=== PATIENT | female | born 1935 | race Hispanic/Latino ===

== ENCOUNTER 2017-12-21 19:14 | Inpatient (IN) | payer MEDICARE, MEDICAID ==
[~2017-12-21] VITALS: Ht 160 cm; Wt 59.9 kg
[~2017-12-21 19:14] MED LIST: AMLODIPINE BESY10 MG ORAL; ASPIRIN EC81 MG ORAL; CARAFATE1 G1 ORAL; CEPHALEXIN250 M1 ORAL; Diovan; GABAPENTIN300 MG ORAL; HYDROCODON-ACE1 EA15 ORAL; NORCO 5-325 TA1 EACH ORAL; OMEPRAZOLE40 M1 ORAL; VALSARTAN-HCTZ1 EAC4 ORAL
[2017-12-21] MEDS ORDERED: LORazepam 1mg tab ORAL ONE (19:30)
[2017-12-21 19:31] VITALS: BP 217/71
[2017-12-21 19:38] LABS: BASOPHILS % (AUTO) 0.8 % (0.0-2.0); EOSINOPHILS % (AUTO) 2.4 % (0.0-3.0); HEMATOCRIT 43.5 % (37.0-47.0); HEMOGLOBIN 14.2 G/DL (12.0-16.0); LYMPHOCYTES % (AUTO) 16.4 % (20.0-45.0); MEAN CORPUSCULAR VOLUME 89 FL (80-99); MONOCYTES % (AUTO) 9.3 % (1.0-10.0); NEUTROPHILS % (AUTO) 71.1 % (45.0-75.0); PLATELET COUNT 369 K/UL (150-450); RED BLOOD COUNT 4.89 M/UL (4.20-5.40); RED CELL DISTRIBUTION WIDTH 11.2 % (11.6-14.8); WHITE BLOOD COUNT 15.8 K/UL (4.8-10.8)
[2017-12-21 19:54] LABS: ANION GAP 10 mmol/L (5-15); BLOOD UREA NITROGEN 14 mg/dL (7-18); CALCIUM 8.7 MG/DL (8.5-10.1); CARBON DIOXIDE 28 MMOL/L (21-32); CHLORIDE 96 MMOL/L (98-107); CREATININE 0.6 MG/DL (0.55-1.30); SODIUM 134 MMOL/L (136-145)
[2017-12-21 20:08] LABS: ALANINE AMINOTRANSFERASE 26 U/L (12-78); ALBUMIN 3.4 G/DL (3.4-5.0); ALBUMIN/GLOBULIN RATIO 0.7 (1.0-2.7); ALKALINE PHOSPHATASE 131 U/L (46-116); ASPARTATE AMINO TRANSFERASE 23 U/L (15-37); BILIRUBIN,TOTAL 0.2 MG/DL (0.2-1.0); CREATINE KINASE 125 U/L (26-308)
[2017-12-21 21:33] VITALS: BP 188/65
[2017-12-21] MEDS ORDERED: Lidocaine 2% Visc 15ml soln ORAL ONE (22:30)
[2017-12-21 22:32] LABS: APPEARANCE,URINE CLEAR; BILIRUBIN, URINE NEGATIVE (NEGATIVE); COLOR,URINE PALE YELLOW; GLUCOSE, URINE (UA) NEGATIVE (NEGATIVE); KETONES,URINE NEGATIVE (NEGATIVE); LEUKOCYTE ESTERASE ,URINE 1+ (NEGATIVE); NITRITE,URINE NEGATIVE (NEGATIVE); PH,URINE 8 (4.5-8.0); PROTEIN,URINE NEGATIVE (NEGATIVE); UROBILINOGEN,URINE NORMAL MG/DL (0.0-1.0)
[2017-12-21 22:56] VITALS: BP 182/62
[2017-12-21] MEDS ORDERED: cefTRIAXone 1 GM in NS 55 ML IVPB ONE (23:30)
--- NOTE | 2017-12-21 23:38 | Emergency Room Report ---
History of Present Illness General Chief Complaint: Generalized Weakness Source: Patient, EMS Present Illness HPI Patient presents with multiple complaints. She fell several days ago and was evaluated. At the hospital they did x-rays and said that nothing was broken and that she was okay. She says it was not a syncopal episode. The injury was her right chest. Currently she feels episodes of flushing with shortness of breath. They're associated also with tingling in her hands and her feet. She took an extra amount of cough syrup recently and this made the symptoms worse. She's also had weakness and dizziness. She denies any chest pain with these episodes. She 's never been treated for anxiety. Patient denies any productive cough at this time. There is nausea with these episodes. There is no diarrhea. She's moving her bowels without difficulty. She denies any dysuria. There are no rashes. She's got a sore throat also. She rates that 8-9/10 in pain. She has pain when she swallows. Patient denies any diabetes or thyroid problems. She does have hypertension and is taking medication for this. Allergies: Coded Allergies: No Known Allergies (Unverified , 11/24/13) Patient History Past Medical History: see triage record Past Surgical History: other - knee and hernia Social History: Denies: smoking, alcohol use, drug use Social History Narrative At home with family Reviewed Nursing Documentation: PMH: Agreed; PSxH: Agreed Nursing Documentation-[facility] Past Medical History: No Stated History Hx Cardiac Problems: Yes Hx Hypertension: Yes Hx Cancer: No Hx Gastrointestinal Problems: Yes Hx Neurological Problems: Yes Hx Peripheral Neuropathy: Yes Hx Syncope: Yes Hx Weakness: Yes Review of Systems All Other Systems: negative except mentioned in HPI Physical Exam Vital Signs Date Time Temp Pulse Resp B/P (MAP) Pulse Ox O2 Delivery O2 Flow Rate FiO2 12/21/17 18:56 99.0 107 20 190/84 99 Room Air 99.0 Sp02 EP Interpretation: reviewed, normal General Appearance: well appearing, no apparent distress, GCS 15, thin Head: normocephalic Eyes: bilateral eye normal inspection, bilateral eye PERRL ENT: moist mucus membranes Neck: supple Respiratory: lungs clear, normal breath sounds Cardiovascular #1: regular rate, rhythm Cardiovascular #2: 2+ radial (R) Gastrointestinal: normal inspection, normal bowel sounds, non tender, no mass, non-distended Musculoskeletal: back normal, gait/station normal, normal range of motion Neurologic: alert, oriented x3, hospital unit clerk III-XII nml as tested, motor strength/tone normal Psychiatric: anxious Skin: normal inspection, warm/dry Medical Decision Making Diagnostic Impression: Primary Impression: Chest pressure Additional Impressions: Sepsis Qualified Codes: A41.9 - Sepsis, unspecified organism UTI (urinary tract infection) Qualified Codes: N39.0 - Urinary tract infection, site not specified Pharyngitis Qualified Codes: J02.9 - Acute pharyngitis, unspecified Anxiety HTN (hypertension) Qualified Codes: I10 - Essential (primary) hypertension Elevated TSH ER Course Patient presents with symptoms of dysphoria which occurred in waveform associated with chest pressure. Differential is broad including acute myocardial infarction acute coronary syndrome, electrolyte abnormality, excessive cough medication ingestion, acute hyperventilation, anxiety, occult infection amongst others. She'll be evaluated with EKG, chest x-ray and labs. She'll be treated with IV hydration and Ativan. Her blood pressure is extremely high and this will be addressed and treated. EKG is sinus rhythm with left ventricular hypertrophy no injury. Chest x-ray is unremarkable. Labs are significant for leukocytosis and elevated lactic acid. In addition she has pyuria. Her TSH is high. The patient's symptoms are somewhat improved with treatment however she's complaining about sore throat. This is treated with viscous lidocaine. Rocephin is given for the urinary tract infection. Still with elevated BP. Hydralazine given. Due to the constellation of symptoms she needs to be admitted to the hospital. Dr. Ordonez was contacted. Laboratory Tests Test 12/21/17 19:00 12/21/17 19:20 12/21/17 22:00 Lactic Acid Level 2.40 mmol/L (0.4-2.0) H White Blood Count 15.8 K/UL (4.8-10.8) H Red Blood Count 4.89 M/UL (4.20-5.40) Hemoglobin 14.2 G/DL (12.0-16.0) Hematocrit 43.5 % (37.0-47.0) Mean Corpuscular Volume 89 FL (80-99) Mean Corpuscular Hemoglobin 29.0 PG (27.0-31.0) Mean Corpuscular Hemoglobin Concent 32.6 G/DL (32.0-36.0) Red Cell Distribution Width 11.2 % (11.6-14.8) L Platelet Count 369 K/UL (150-450) Mean Platelet Volume 6.8 FL (6.5-10.1) Neutrophils (%) (Auto) 71.1 % (45.0-75.0) Lymphocytes (%) (Auto) 16.4 % (20.0-45.0) L Monocytes (%) (Auto) 9.3 % (1.0-10.0) Eosinophils (%) (Auto) 2.4 % (0.0-3.0) Basophils (%) (Auto) 0.8 % (0.0-2.0) Sodium Level 134 MMOL/L (136-145) L Potassium Level 4.0 MMOL/L (3.5-5.1) Chloride Level 96 MMOL/L (98-107) L Carbon Dioxide Level 28 MMOL/L (21-32) Anion Gap 10 mmol/L (5-15) Blood Urea Nitrogen 14 mg/dL (7-18) Creatinine 0.6 MG/DL (0.55-1.30) Estimate Glomerular Filtration Rate mL/min (>60) Glucose Level 203 MG/DL (74-106) H Calcium Level 8.7 MG/DL (8.5-10.1) Total Bilirubin 0.2 MG/DL (0.2-1.0) Aspartate Amino Transferase (AST) 23 U/L (15-37) Alanine Aminotransferase (ALT) 26 U/L (12-78) Alkaline Phosphatase 131 U/L (46-116) H Total Creatine Kinase 125 U/L (26-308) Troponin I 0.000 ng/mL (0.000-0.056) Total Protein 8.2 G/DL (6.4-8.2) Albumin 3.4 G/DL (3.4-5.0) Globulin 4.8 g/dL Albumin/Globulin Ratio 0.7 (1.0-2.7) L Thyroid Stimulating Hormone (TSH) 5.478 uiU/mL (0.358-3.740) Salicylates Level 1.7 ug/mL (2.8-20) L Acetaminophen Level < 2 MCG/ML (10-30) L Serum Alcohol < 3 mg/dL Urine Color Pale yellow Urine Appearance Clear Urine pH 8 (4.5-8.0) Urine Specific [place] 1.010 (1.005-1.035) Urine Protein Negative (NEGATIVE) Urine Glucose (UA) Negative (NEGATIVE) Urine Ketones Negative (NEGATIVE) Urine Occult Blood 2+ (NEGATIVE) H Urine Nitrite Negative (NEGATIVE) Urine Bilirubin Negative (NEGATIVE) Urine Urobilinogen Normal MG/DL (0.0-1.0) Urine Leukocyte Esterase 1+ (NEGATIVE) H Urine RBC 2-4 /HPF (0 - 2) H Urine WBC 5-10 /HPF (0 - 2) H Urine Squamous Epithelial Cells Few /LPF (NONE/OCC) Urine Bacteria Few /HPF (NONE) Urine Mucus Few /LPF (NONE/OCC) H Urine Opiates Screen Negative (NEGATIVE) Urine Barbiturates Screen Negative (NEGATIVE) Phencyclidine (PCP) Screen Negative (NEGATIVE) Urine Amphetamines Screen Negative (NEGATIVE) Urine Benzodiazepines Screen Negative (NEGATIVE) Urine Cocaine Screen Negative (NEGATIVE) Urine Marijuana (THC) Screen Negative (NEGATIVE) EKG Diagnostic Results Rate: normal Rhythm: NSR ST Segments: no acute changes Rhythm Strip Diag. Results EP Interpretation: yes Rhythm: NSR, no PVC's, no ectopy Chest X-Ray Diagnostic Results Chest X-Ray Diagnostic Results : Chest X-Ray Ordered: Yes # of Views/Limited/Complete: 1 View Indication: Other Interpretation: no consolidation, no effusion, no pneumothorax Impression: No acute disease Electronically Signed by: Electronically signed by Leonardo Morrissey MD Last Vital Signs Date Time Temp Pulse Resp B/P (MAP) Pulse Ox O2 Delivery O2 Flow Rate FiO2 12/22/17 01:13 165/55 12/21/17 22:56 99.0 76 16 96 Room Air 99.0 Status: improved Disposition: ADMITTED INPATIENT Condition: Serious Referrals: OTHER,REFERRING (PCP) Leonardo Morrissey M.D. Dec 21, 2017 23:38
[2017-12-22] VITALS (7 sets, daily range): BP systolic 146–173; BP diastolic 53–77
[2017-12-22] MEDS ORDERED: Norco 5mg/325mg tab ORAL PRN (04:15)
[2017-12-22] MEDS ORDERED: Sucralfate 1gm tab ORAL PRN (04:15)
[2017-12-22] MEDS: Irbesartan 150mg tablet ORAL SCH (08:21)
[2017-12-22] MEDS: hydroCHLOROthiazide 12.5mg TAB ORAL SCH (08:21)
[2017-12-22] MEDS: Heparin 5000 units/ml inj SUBQ SCH ×2 (08:24→20:50)
[2017-12-22] MEDS ORDERED: Azithromycin 250mg tab ORAL SCH (09:00)
--- NOTE | 2017-12-22 09:59 | Diagnostic Imaging Report ---
Indication: Right shoulder pain, trauma Technique: 3 views of the ] shoulder Comparison: none Findings: No acute fractures. No dislocations. Bones appear demineralized. The joint spaces are preserved Impression: Negative
[2017-12-22] MEDS: cefTRIAXone 1 GM in NS 55 ML IVPB SCH (10:07)
--- NOTE | 2017-12-22 10:46 | Diagnostic Imaging Report ---
Indication: Shortness of breath Technique: One view of the chest Comparison: 11/24/2013 Findings: Inspiration currently. The heart is upper limits normal in size. The aorta is tortuous. Upper mediastinum is unremarkable. There is no significant interim change Impression: No acute process
--- NOTE | 2017-12-22 11:30 | History and Physical Report ---
DATE OF ADMISSION: 12/21/2017 CHIEF COMPLAINT: Fall and shoulder pain. HISTORY OF PRESENT ILLNESS: The patient is a pleasant 82-year-old female, who presented with complaints of fall. According to the patient, she has had a nonproductive cough for approximately a week. She was ordered cough medicine. After taking the cough medicine, she felt weak, dizzy, and had a fall onto her right shoulder. She presented to the emergency room. On evaluation there, she was noted to have an elevated white count of 16,000, low sodium of 134. Her lactic acid level was mildly elevated at 2.4. TSH was also elevated at 5.4. She had UA with 5 to 10 wbc's. On x-ray, there was some bibasilar atelectasis versus infiltrate noted. PAST MEDICAL HISTORY: As above. The patient has a history of hypertension. PAST SURGICAL HISTORY: Includes hernia and knee surgery. SOCIAL HISTORY: Negative for tobacco, ethanol, or drugs. MEDICATIONS: Reconciled and reviewed. ALLERGIES: None. FAMILY HISTORY: Significant for diabetes. REVIEW OF SYSTEMS: GENERAL: No fever or chills. HEENT: No headaches or visual changes. CARDIOPULMONARY: No chest pain. Positive cough. GASTROINTESTINAL: No nausea or vomiting. GENITOURINARY: No urgency or frequency. MUSCULOSKELETAL: No joint pain or swelling. NEUROLOGIC: No history of seizures. PHYSICAL EXAMINATION: VITAL SIGNS: Temperature 99.1, pulse 80, respirations 18, and blood pressure 164/53. GENERAL: The patient is a well-developed, thin appearing female, no apparent distress. HEART: Regular rate and rhythm. LUNGS: Bibasilar rales. ABDOMEN: Soft, nontender, and nondistended. EXTREMITIES: Without clubbing, cyanosis, or edema. LABORATORY DATA: UA showed 5 to 10 wbc's. White count 16,000. Sodium 134. Lactic acid was 2.4. Tox screen was negative. ASSESSMENT: This is a pleasant female with complaints of a fall, possibly secondary to some cough medicine. She does have elevated white count. She has evidence of UTI and possible pneumonia. PLAN: IV antibiotics. Trend white count. Follow up cultures. Repeat chest x-ray. ID and Pulmonary evaluations to be obtained. PT and OT evaluations to be obtained. Chetan Ordonez M.D. DR: LAMAR JOB#: [id number] CC:
--- NOTE | 2017-12-22 13:32 | Cardiology Report ---
APPROVED REPORT EKG Measurement Heart [id number] Normal sinus rhythm Left ventricular hypertrophy with repolarization abnormality Abnormal ECG
--- NOTE | 2017-12-22 17:15 | Consultation ---
DATE OF CONSULTATION: 12/22/2017 INFECTIOUS DISEASES CONSULTATION CONSULTING PHYSICIAN: Vickie Fleming M.D. REFERRING PHYSICIAN: Chetan Ordonez M.D. REASON FOR CONSULTATION: Urinary tract infection and pneumonia. HISTORY OF PRESENTING ILLNESS: This is an 82-year-old lady with history of hypertension, who came in with cough along with nausea. She was found to have a leukocytosis and urinary tract infection and a possible pneumonia and an Infectious Diseases consultation has been obtained for antibiotics. PAST MEDICAL HISTORY: 1. History of hypertension. 2. History of knee surgery and hernia surgery. MEDICATIONS: As an inpatient, the patient is on gabapentin, amlodipine, hydrochlorothiazide, subcutaneous heparin, irbesartan, ceftriaxone, azithromycin, Tylenol, Protonix, [place], sucralfate, Zofran, and clonidine. ALLERGIES: No known drug allergies. SOCIAL HISTORY: No history of smoking, alcohol, or drug use. FAMILY HISTORY: Positive for diabetes. REVIEW OF SYSTEMS: RESPIRATORY: No fever or chills. She does have a mild cough. No shortness of breath or chest pain. CARDIAC: No chest pain. No palpitations. No dizziness. No syncope. GASTROINTESTINAL: No nausea. No vomiting. No abdominal pain or diarrhea. PHYSICAL EXAMINATION: VITAL SIGNS: Temperature of 99, T-max of 99.1, pulse of 83, respiratory rate 20, blood pressure 160/73, and O2 saturation of 95%. HEENT: Pupils equally reactive to light and accommodation. Mouth appears clean without thrush. NECK: Supple. No adenopathy. No JVD. CARDIOVASCULAR: Regular rate and rhythm. No murmurs. LUNGS: Clear to auscultation bilaterally. No crackles. No wheezes. ABDOMEN: Soft and nontender. No organomegaly. EXTREMITIES: No cyanosis, no clubbing, no edema. LABORATORY AND DIAGNOSTIC DATA: White count 15.8, hemoglobin 14.2, hematocrit 43.5, MCV 89, and platelet count of 369,000 with neutrophils of 71%. Sodium 134, potassium 4, chloride 96, bicarb 28, BUN 14, creatinine 0.6, glucose 203, and calcium 8.7. Total bilirubin 0.2. AST 23, ALT 26, and alkaline phosphatase 131. CK of 125. Total protein 8.2. Albumin 3.4. UA is showing 5 to 10 white cells. Chest x-ray was showing no acute process. ASSESSMENT: This is an 82-year-old lady with history of hypertension, who comes in with mild cough and nausea and is found to have, 1. Urinary tract infection. 2. Hypertension. PLAN: 1. Continue ceftriaxone. 2. Discontinue azithromycin. 3. We will order urine cultures. 4. We will follow up cultures and adjust antibiotics accordingly. I would like to thank, Dr. Ordonez, for this consultation. Vickie Fleming M.D. DR: BAIRON JOB#: [id number] CC: Chetan Ordonez M.D.
[2017-12-23] VITALS: BP 140/77
[2017-12-23 04:00] VITALS: BP 147/86
[2017-12-23 06:46] LABS: BASOPHILS % (AUTO) 0.9 % (0.0-2.0); EOSINOPHILS % (AUTO) 2.1 % (0.0-3.0); HEMATOCRIT 39.1 % (37.0-47.0); HEMOGLOBIN 13.6 G/DL (12.0-16.0); MEAN CORPUSCULAR VOLUME 87 FL (80-99); MONOCYTES % (AUTO) 13.5 % (1.0-10.0); NEUTROPHILS % (AUTO) 64.6 % (45.0-75.0); PLATELET COUNT 351 K/UL (150-450); RED CELL DISTRIBUTION WIDTH 11.1 % (11.6-14.8); WHITE BLOOD COUNT 11.4 K/UL (4.8-10.8)
[2017-12-23 07:18] LABS: ALANINE AMINOTRANSFERASE 20 U/L (12-78); ALBUMIN 2.6 G/DL (3.4-5.0); ALBUMIN/GLOBULIN RATIO 0.6 (1.0-2.7); ALKALINE PHOSPHATASE 107 U/L (46-116); ANION GAP 6 mmol/L (5-15); ASPARTATE AMINO TRANSFERASE 18 U/L (15-37); BILIRUBIN,TOTAL 0.3 MG/DL (0.2-1.0); BLOOD UREA NITROGEN 10 mg/dL (7-18); CALCIUM 7.5 MG/DL (8.5-10.1); CARBON DIOXIDE 28 MMOL/L (21-32); CHLORIDE 104 MMOL/L (98-107); CREATININE 0.5 MG/DL (0.55-1.30); POTASSIUM 3.5 MMOL/L (3.5-5.1); SODIUM 138 MMOL/L (136-145)
[2017-12-23 08:00] VITALS: BP 191/76
[2017-12-23] MEDS: hydroCHLOROthiazide 12.5mg TAB ORAL SCH (08:11)
[2017-12-23] MEDS: Irbesartan 150mg tablet ORAL SCH (08:12)
[2017-12-23] MEDS: Heparin 5000 units/ml inj SUBQ SCH ×2 (08:14→20:31)
[2017-12-23] MEDS: cefTRIAXone 1 GM in NS 55 ML IVPB SCH (08:14)
--- NOTE | 2017-12-23 10:01 | General Progress Note ---
Assessment/Plan Problem List: (1) PNA (pneumonia) ICD Codes: J18.9 - Pneumonia, unspecified organism SNOMED: 048586214 (2) Syncope (3) Hypotension (4) Sepsis ICD Codes: A41.9 - Sepsis, unspecified organism SNOMED: 28398294 Qualifiers: Qualified Codes: A41.9 - Sepsis, unspecified organism (5) HTN (hypertension) ICD Codes: I10 - Essential (primary) hypertension SNOMED: 22429262 Qualifiers: Qualified Codes: I10 - Essential (primary) hypertension Status: stable, progressing Assessment/Plan cont abx pain rx abd coleman increase bp rx dc planning tomorrow if bp better controlled. Subjective ROS Limited/Unobtainable: No Constitutional: Reports: malaise, weakness HEENT: Reports: no symptoms Cardiovascular: Reports: no symptoms Respiratory: Reports: cough Gastrointestinal/Abdominal: Reports: abdominal pain Genitourinary: Reports: no symptoms Neurologic/Psychiatric: Reports: no symptoms Endocrine: Reports: no symptoms Hematologic/Lymphatic: Reports: no symptoms Allergies: Coded Allergies: No Known Allergies (Unverified , 11/24/13) All Systems: reviewed and negative except above Subjective bp remains elevated and difficult to control. right shoulder pain. xray negative. c/o rlq abd pain Objective Last 24 Hour Vital Signs Date Time Temp Pulse Resp B/P (MAP) Pulse Ox O2 Delivery O2 Flow Rate FiO2 12/23/17 08:12 191/76 12/23/17 08:12 85 191/76 12/23/17 08:00 97.5 85 22 191/76 95 97.5 12/23/17 04:00 98.1 73 19 147/86 97 Room Air 98.1 12/23/17 00:00 98.3 88 19 140/77 96 Room Air 98.3 12/22/17 22:35 157/70 12/22/17 21:44 173/75 12/22/17 21:30 98.4 87 18 173/75 97 Room Air 98.4 12/22/17 16:00 97.5 83 19 155/77 97 Room Air 97.5 12/22/17 12:00 97.5 79 18 146/72 97 Room Air 97.5 Intake and Output 12/22/17 12/23/17 19:00 07:00 Intake Total 3250 ml 1200 ml Output Total 3 ml Balance 3247 ml 1200 ml Intake Oral 2150 ml 100 ml IV Total 1100 ml 1100 ml Output Urine Total 3 ml # Voids 1 2 # Bowel Movements 2 Laboratory Tests 12/23/17 05:25: White Blood Count 11.4H, Red Blood Count 4.50, Hemoglobin 13.6, Hematocrit 39.1 , Mean Corpuscular Volume 87, Mean Corpuscular Hemoglobin 30.1, Mean Corpuscular Hemoglobin Concent 34.6, Red Cell Distribution Width 11.1L, Platelet Count 351, Mean Platelet Volume 6.4L, Neutrophils (%) (Auto) 64.6, Lymphocytes (%) (Auto) 19.0L, Monocytes (%) (Auto) 13.5H, Eosinophils (%) (Auto ) 2.1, Basophils (%) (Auto) 0.9, Sodium Level 138, Potassium Level 3.5, Chloride Level 104, Carbon Dioxide Level 28, Anion Gap 6, Blood Urea Nitrogen 10 , Creatinine 0.5L, Estimat Glomerular Filtration Rate , Glucose Level 108H, Calcium Level 7.5L, Total Bilirubin 0.3, Aspartate Amino Transf (AST/SGOT) 18, Alanine Aminotransferase (ALT/SGPT) 20, Alkaline Phosphatase 107, Total Protein 6.7, Albumin 2.6L, Globulin 4.1, Albumin/Globulin Ratio 0.6L Height (Feet): 5 Height (Inches): 3.00 Weight (Pounds): 110 General Appearance: WD/WN, alert Neck: supple Cardiovascular: regular rhythm Respiratory/Chest: lungs clear, normal breath sounds, no respiratory distress Abdomen: normal bowel sounds, soft, no organomegaly, abnormal bowel sounds Chetan Ordonez MD Dec 23, 2017 10:01
--- NOTE | 2017-12-23 10:21 | Consultation ---
Consult Note Consult Note DATE OF CONSULTATION: 12/23/2017 HISTORY OF PRESENTING ILLNESS: This is an 82-year-old female with history of hypertension, who came in with cough along with nausea. She was found to have a leukocytosis and urinary tract infection and a possible pneumonia She has been started on abx per ID PAST MEDICAL HISTORY: 1. History of hypertension. 2. History of knee surgery and hernia surgery. MEDICATIONS: As an inpatient, the patient is on gabapentin, amlodipine, hydrochlorothiazide, subcutaneous heparin, irbesartan, ceftriaxone, azithromycin, Tylenol, Protonix, [place], sucralfate, Zofran, and clonidine. ALLERGIES: No known drug allergies. SOCIAL HISTORY: No history of smoking, alcohol, or drug use. FAMILY HISTORY: Positive for diabetes. REVIEW OF SYSTEMS: RESPIRATORY: No fever or chills. She does have a mild cough. No shortness of breath or chest pain. CARDIAC: No chest pain. No palpitations. No dizziness. No syncope. GASTROINTESTINAL: No nausea. No vomiting. No abdominal pain or diarrhea. PHYSICAL EXAMINATION: VITAL SIGNS: Temperature of 99, T-max of 99.1, pulse of 83, respiratory rate 20, blood pressure 160/73, and O2 saturation of 95%. HEENT: Pupils equally reactive to light and accommodation. Mouth appears clean without thrush. NECK: Supple. No adenopathy. No JVD. CARDIOVASCULAR: Regular rate and rhythm. No murmurs. LUNGS: Clear to auscultation bilaterally. No crackles. No wheezes. ABDOMEN: Soft and nontender. No organomegaly. EXTREMITIES: No cyanosis, no clubbing, no edema. LABORATORY AND DIAGNOSTIC DATA: White count 15.8, hemoglobin 14.2, hematocrit 43.5, MCV 89, and platelet count of 369,000 with neutrophils of 71%. Sodium 134, potassium 4, chloride 96, bicarb 28, BUN 14, creatinine 0.6, glucose 203, and calcium 8.7. Total bilirubin 0.2. AST 23, ALT 26, and alkaline phosphatase 131. CK of 125. Total protein 8.2. Albumin 3.4. UA is showing 5 to 10 white cells. Chest x-ray was showing no acute process. ASSESSMENT: This is an 82-year-old female with history of hypertension, who comes in with mild cough and nausea and is found to have a UTI. CXR is clear. PLAN: 1. Continue ceftriaxone. 2. Discontinue azithromycin. 3. Await urine cultures. DC planning for home in [place] Lisa Omar Syed MD Dec 23, 2017 10:21
[2017-12-23] MEDS: HydrALAZINE 50mg tab ORAL SCH ×3 (11:16→21:12)
--- NOTE | 2017-12-23 11:49 | Infectious Diseases Prog Note ---
Assessment/Plan Assessment/Plan A; UTI HPN Bronchitis P: Continue Rocephin Will f/u abdominal US & cultures Subjective ROS Limited/Unobtainable: No Constitutional: Reports: no symptoms Respiratory: Reports: dry cough Cardiovascular: Reports: no symptoms Gastrointestinal/Abdominal: Reports: no symptoms Genitourinary: Reports: no symptoms Allergies: Coded Allergies: No Known Allergies (Unverified , 11/24/13) Objective Vital Signs Last 24 Hour Vital Signs Date Time Temp Pulse Resp B/P (MAP) Pulse Ox O2 Delivery O2 Flow Rate FiO2 12/23/17 11:16 157/69 12/23/17 11:02 97.5 12/23/17 10:03 97.5 12/23/17 08:12 191/76 12/23/17 08:12 85 191/76 12/23/17 08:00 97.5 85 22 191/76 95 97.5 12/23/17 04:00 98.1 73 19 147/86 97 Room Air 98.1 12/23/17 00:00 98.3 88 19 140/77 96 Room Air 98.3 12/22/17 22:35 157/70 12/22/17 21:44 173/75 12/22/17 21:30 98.4 87 18 173/75 97 Room Air 98.4 12/22/17 16:00 97.5 83 19 155/77 97 Room Air 97.5 12/22/17 12:00 97.5 79 18 146/72 97 Room Air 97.5 Height (Feet): 5 Height (Inches): 3.00 Weight (Pounds): 110 General Appearance: no acute distress HEENT: mucous membranes moist Respiratory/Chest: lungs clear Cardiovascular: normal rate Abdomen: soft, non tender Extremities: no edema Neurologic/Psychiatric: alert, responsive Laboratory Tests Test 12/23/17 05:25 White Blood Count 11.4 K/UL (4.8-10.8) H Red Blood Count 4.50 M/UL (4.20-5.40) Hemoglobin 13.6 G/DL (12.0-16.0) Hematocrit 39.1 % (37.0-47.0) Mean Corpuscular Volume 87 FL (80-99) Mean Corpuscular Hemoglobin 30.1 PG (27.0-31.0) Mean Corpuscular Hemoglobin Concent 34.6 G/DL (32.0-36.0) Red Cell Distribution Width 11.1 % (11.6-14.8) L Platelet Count 351 K/UL (150-450) Mean Platelet Volume 6.4 FL (6.5-10.1) L Neutrophils (%) (Auto) 64.6 % (45.0-75.0) Lymphocytes (%) (Auto) 19.0 % (20.0-45.0) L Monocytes (%) (Auto) 13.5 % (1.0-10.0) H Eosinophils (%) (Auto) 2.1 % (0.0-3.0) Basophils (%) (Auto) 0.9 % (0.0-2.0) Sodium Level 138 MMOL/L (136-145) Potassium Level 3.5 MMOL/L (3.5-5.1) Chloride Level 104 MMOL/L (98-107) Carbon Dioxide Level 28 MMOL/L (21-32) Anion Gap 6 mmol/L (5-15) Blood Urea Nitrogen 10 mg/dL (7-18) Creatinine 0.5 MG/DL (0.55-1.30) L Estimat Glomerular Filtration Rate mL/min (>60) Glucose Level 108 MG/DL (74-106) H Calcium Level 7.5 MG/DL (8.5-10.1) L Total Bilirubin 0.3 MG/DL (0.2-1.0) Aspartate Amino Transf (AST/SGOT) 18 U/L (15-37) Alanine Aminotransferase (ALT/SGPT) 20 U/L (12-78) Alkaline Phosphatase 107 U/L (46-116) Total Protein 6.7 G/DL (6.4-8.2) Albumin 2.6 G/DL (3.4-5.0) L Globulin 4.1 g/dL Albumin/Globulin Ratio 0.6 (1.0-2.7) L Current Medications Medications (Trade) Dose Ordered Sig/Re Route PRN Reason Start Time Stop Time Status Last Admin Dose Admin Acetaminophen (Tylenol) 650 mg Q4H PRN ORAL Mild Pain/Temp > 100.5 12/22/17 08:45 01/21/18 08:44 Acetaminophen/ Hydrocodone Bitart ([place] 5/325) 1 tab Q4H PRN ORAL For Pain 12/22/17 04:15 12/29/17 04:14 12/23/17 10:03 Amlodipine Besylate (Norvasc) 10 mg DAILY ORAL 12/22/17 09:00 01/21/18 08:59 12/23/17 08:12 Ceftriaxone Sodium 1 gm/ Sodium Chloride 55 ml @ 110 mls/hr Q24H IVPB 12/22/17 09:00 12/29/17 08:59 12/23/17 08:14 Clonidine HCl (Catapres Tab) 0.1 mg Q4H PRN ORAL For High Blood Pressure 12/22/17 04:15 01/21/18 04:14 12/22/17 21:44 Gabapentin (Neurontin) 300 mg BEDTIME ORAL 12/22/17 21:00 01/21/18 20:59 12/22/17 20:50 Heparin Sodium (Porcine) (Heparin 5000 units/ml) 5,000 units EVERY 12 HOURS SUBQ 12/22/17 09:00 01/21/18 08:59 12/23/17 08:14 Hydralazine HCl (Apresoline) 50 mg Q8HR ORAL 12/23/17 10:30 01/22/18 10:29 12/23/17 11:16 Hydrochlorothiazide (Hydrodiuril) 12.5 mg DAILY ORAL 12/22/17 09:00 01/21/18 08:59 12/23/17 08:11 Irbesartan (Avapro) 300 mg DAILY ORAL 12/22/17 09:00 01/21/18 08:59 12/23/17 08:12 Ondansetron HCl (Zofran) 4 mg Q4H PRN IVP Nausea & Vomiting 12/22/17 04:15 01/21/18 04:14 Pantoprazole (Protonix) 40 mg DAILY ORAL 12/22/17 08:30 01/21/18 08:29 12/23/17 08:12 Sodium Chloride 1,000 ml @ 100 mls/hr Q10H IV 12/22/17 05:00 01/21/18 04:59 12/23/17 01:03 Sucralfate (Carafate) 1 gm Q6H PRN ORAL Abdominal cramps 12/22/17 04:15 01/21/18 04:14 Mervin Reyes MD Dec 23, 2017 11:49
[2017-12-23 12:00] VITALS: BP 157/69
[2017-12-23 16:00] VITALS: BP 130/59
[2017-12-23 20:00] VITALS: BP 160/65
[2017-12-24] VITALS: BP 152/64
[2017-12-24 04:00] VITALS: BP 178/77
[2017-12-24] MEDS: HydrALAZINE 50mg tab ORAL SCH (05:33)
[2017-12-24 06:20] VITALS: BP 149/60
[2017-12-24] MEDS ORDERED: APRESOLINE50 MG ORAL (07:57)
[2017-12-24] MEDS ORDERED: LEVAQUIN500 MG ORAL (07:57)
[2017-12-24 08:00] VITALS: BP 166/70
--- NOTE | 2017-12-24 08:22 | Pulmonology Progress Note ---
Assessment/Plan Assessment/Plan ASSESSMENT: This is an 82-year-old female with history of hypertension, who comes in with mild cough and nausea and is found to have a UTI. CXR is clear. PLAN: DC planning for home today PO abx Subjective Interval Events: WBC decreased Constitutional: Reports: no symptoms HEENT: Repors: no symptoms Respiratory: Reports: no symptoms Cardiovascular: Reports: no symptoms Allergies: Coded Allergies: No Known Allergies (Unverified , 11/24/13) Objective Last 24 Hour Vital Signs Date Time Temp Pulse Resp B/P (MAP) Pulse Ox O2 Delivery O2 Flow Rate FiO2 12/24/17 08:00 98.0 81 20 166/70 98 Room Air 98.0 12/24/17 05:33 178/77 12/24/17 04:00 98.2 100 20 178/77 98 Room Air 98.2 12/24/17 00:00 98.0 83 17 152/64 96 Room Air 98.0 12/23/17 21:12 160/65 12/23/17 20:00 97.6 86 19 160/65 98 Room Air 97.6 12/23/17 16:00 97.5 83 18 130/59 96 Room Air 97.5 12/23/17 14:37 172/74 12/23/17 12:00 97.5 77 22 157/69 93 Room Air 97.5 12/23/17 12:00 97.5 77 22 157/69 93 97.5 12/23/17 11:16 157/69 12/23/17 11:02 97.5 12/23/17 10:03 97.5 Intake and Output 12/23/17 12/24/17 19:00 07:00 Intake Total 800 ml 900 ml Balance 800 ml 900 ml IV Total 600 ml 900 ml Other 200 ml # Voids 3 1 General Appearance: no acute distress HEENT: normocephalic Respiratory/Chest: chest wall non-tender, lungs clear Cardiovascular: normal peripheral pulses, normal rate Current Medications Medications (Trade) Dose Ordered Sig/Re Route PRN Reason Start Time Stop Time Status Last Admin Dose Admin Acetaminophen (Tylenol) 650 mg Q4H PRN ORAL Mild Pain/Temp > 100.5 12/22/17 08:45 01/21/18 08:44 Acetaminophen/ Hydrocodone Bitart ([place] 5/325) 1 tab Q4H PRN ORAL For Pain 12/22/17 04:15 12/29/17 04:14 12/23/17 10:03 Amlodipine Besylate (Norvasc) 10 mg DAILY ORAL 12/22/17 09:00 01/21/18 08:59 12/23/17 08:12 Ceftriaxone Sodium 1 gm/ Sodium Chloride 55 ml @ 110 mls/hr Q24H IVPB 12/22/17 09:00 12/29/17 08:59 12/23/17 08:14 Clonidine HCl (Catapres Tab) 0.1 mg Q4H PRN ORAL For High Blood Pressure 12/22/17 04:15 01/21/18 04:14 12/22/17 21:44 Gabapentin (Neurontin) 300 mg BEDTIME ORAL 12/22/17 21:00 01/21/18 20:59 12/23/17 20:30 Heparin Sodium (Porcine) (Heparin 5000 units/ml) 5,000 units EVERY 12 HOURS SUBQ 12/22/17 09:00 01/21/18 08:59 12/23/17 20:31 Hydralazine HCl (Apresoline) 50 mg Q8HR ORAL 12/23/17 10:30 01/22/18 10:29 12/24/17 05:33 Hydrochlorothiazide (Hydrodiuril) 12.5 mg DAILY ORAL 12/22/17 09:00 01/21/18 08:59 12/23/17 08:11 Irbesartan (Avapro) 300 mg DAILY ORAL 12/22/17 09:00 01/21/18 08:59 12/23/17 08:12 Ondansetron HCl (Zofran) 4 mg Q4H PRN IVP Nausea & Vomiting 12/22/17 04:15 01/21/18 04:14 Pantoprazole (Protonix) 40 mg DAILY ORAL 12/22/17 08:30 01/21/18 08:29 12/23/17 08:12 Sodium Chloride 1,000 ml @ 100 mls/hr Q10H IV 12/22/17 05:00 01/21/18 04:59 12/24/17 05:25 Sucralfate (Carafate) 1 gm Q6H PRN ORAL Abdominal cramps 12/22/17 04:15 01/21/18 04:14 Dhruv Chawla MD Dec 24, 2017 08:22
[2017-12-24] MEDS: hydroCHLOROthiazide 12.5mg TAB ORAL SCH (08:44)
[2017-12-24] MEDS: cefTRIAXone 1 GM in NS 55 ML IVPB SCH (08:44)
[2017-12-24 08:45] VITALS: BP 166/70
[2017-12-24] MEDS: Irbesartan 150mg tablet ORAL SCH (08:45)
[2017-12-24] MEDS: Heparin 5000 units/ml inj SUBQ SCH (08:46)
--- NOTE | 2017-12-24 11:04 | Infectious Diseases Prog Note ---
Assessment/Plan Assessment/Plan antibiotics : ceftriaxone A 1. leucocytosis resolved 2. UTI s/p rx 3. HTN P 1. d/c ceftriaxone 2. observe off antibiotics Subjective Constitutional: Denies: fever, chills Respiratory: Reports: dry cough; Denies: shortness of breath Gastrointestinal/Abdominal: Denies: nausea, vomiting, diarrhea Musculoskeletal: Reports: pain Allergies: Coded Allergies: No Known Allergies (Unverified , 11/24/13) Objective Vital Signs Last 24 Hour Vital Signs Date Time Temp Pulse Resp B/P (MAP) Pulse Ox O2 Delivery O2 Flow Rate FiO2 12/24/17 08:45 166/70 12/24/17 08:45 81 166/70 12/24/17 08:00 98.0 81 20 166/70 98 Room Air 98.0 12/24/17 05:33 178/77 12/24/17 04:00 98.2 100 20 178/77 98 Room Air 98.2 12/24/17 00:00 98.0 83 17 152/64 96 Room Air 98.0 12/23/17 21:12 160/65 12/23/17 20:00 97.6 86 19 160/65 98 Room Air 97.6 12/23/17 16:00 97.5 83 18 130/59 96 Room Air 97.5 12/23/17 14:37 172/74 12/23/17 12:00 97.5 77 22 157/69 93 Room Air 97.5 12/23/17 12:00 97.5 77 22 157/69 93 97.5 12/23/17 11:16 157/69 Height (Feet): 5 Height (Inches): 3.00 Weight (Pounds): 132 Respiratory/Chest: lungs clear Cardiovascular: normal rate, regular rhythm, no gallop/murmur Abdomen: soft, non tender Extremities: no edema Microbiology Date/Time Source Procedure Growth Status 12/22/17 21:50 Urine,Clean Catch Urine Culture - Preliminary NO GROWTH Resulted DAVID FLETCHER Dec 24, 2017 11:04
--- NOTE | 2017-12-24 13:54 | Diagnostic Imaging Report ---
Indication: Abdominal pain Technique: Sharma-scale and duplex images of the upper abdomen were obtained Comparison: Findings: Gallbladder is unremarkable, without stones, wall thickening, nor pericholecystic fluid. Sonographic Cedeño's sign is negative. Common bile duct measures 2 mm in diameter. No intrahepatic biliary ductal dilatation. Liver demonstrates normal echogenicity, no focal abnormality. Portal vein and hepatic veins are patent. Pancreas is unremarkable. Spleen is unremarkable. Left kidney measures 10.9 cm in length. Right kidney measures 10.7 cm length. Both kidneys demonstrate normal echogenicity. There is no hydronephrosis. There are bilateral renal cysts . Non-aneurysmal abdominal aorta . Impression: Essentially unremarkable exam. Incidental finding of bilateral renal cysts
--- NOTE | 2017-12-25 03:00 | Discharge Summary ---
DATE OF ADMISSION: 12/21/2017 DATE OF DISCHARGE: 12/24/2017 ADMISSION DIAGNOSES: 1. Near syncope. 2. Weakness. 3. Elevated lactic acid level. 4. Pneumonia. 5. Urinary tract infection. 6. Abdominal pain. DISCHARGE DIAGNOSES: 1. Near syncope. 2. Weakness. 3. Elevated lactic acid level. 4. Pneumonia. 5. Urinary tract infection. 6. Abdominal pain. HOSPITAL COURSE: The patient is a pleasant female, who presented with complaints of generalized weakness and dizziness. She had been taking some newly prescribed cough medicine for her cough. She had an elevated lactic acid level. X-ray showed a possible infiltrate. The patient received IV antibiotics. She was also diagnosed with urinary tract infection. She was hydrated. Symptoms improved. On discharge, she was doing well. She did require additional blood pressure medications. She will be discharged home with five days of antibiotic therapy for pneumonia and urinary tract infection. She is asked to follow up with her PMD to get results of her ultrasound, which were still pending upon discharge. DISCHARGE MEDICATIONS: Please see discharge list for discharge medications. DIET: Regular diet. ACTIVITY: Ad-asia. Chetan Ordonez M.D. DR: ALTON JOB#: [id number] CC:
== END 2017-12-24 11:00 | disposition home or self-care (01) | DRG 194 ==
LOC: EDBD 19:14 → EMR 20:19 → 3E 23:15 → EDBEDREQ 12-22 02:39
DX: J18.9 Pneumonia, unspecified organism (principal); N39.0 Urinary tract infection, site not specified; R55 Syncope and collapse; R53.1 Weakness; R10.9 Unspecified abdominal pain; G62.9 Polyneuropathy, unspecified; Z91.81 History of falling; I10 Essential (primary) hypertension; M25.511 Pain in right shoulder
CPT/HCPCS: 36415; 71045; 76700; 80053; 80307; 80329; 81003; 82550; 82962; 83605; 84443; 84484; 85025; 87086; 93005; 99285